=== PATIENT | female | born 1940 | race Caucasian/White ===

== ENCOUNTER 2017-10-21 06:12 | Inpatient (IN) | payer MEDICARE, OTHER ==
[2017-10-21] MEDS: morphine 2 MG INJ IV (06:58)
[2017-10-21 07:29] LABS: ADD MAN DIFF? NO
[2017-10-21 07:34] LABS: BASOPHILS % 0.3 % (0.0-2.0); EOSINOPHILS # 0.3 10^3/ul (0.0-0.5); EOSINOPHILS % 2.4 % (0.0-7.0); HEMATOCRIT 39.3 % (37.0-47.0); HEMOGLOBIN 13.3 g/dl (12.0-16.0); LYMPHOCYTES # 1.3 10^3/ul (0.8-2.9); LYMPHOCYTES % 11.6 % (15.0-51.0); MEAN CORPUSCULAR HEMOGLOBIN 27.9 pg (29.0-33.0); MEAN CORPUSCULAR HGB CONC 33.8 g/dl (32.0-37.0); MEAN CORPUSCULAR VOLUME 82.4 fl (82.0-101.0); MEAN PLATELET VOLUME 8.6 fl (7.4-10.4); MONOCYTE # 0.6 10^3/ul (0.3-0.9); MONOCYTES % 5.4 % (0.0-11.0); NEUTROPHIL # 9.2 10^3/ul (1.6-7.5); PLATELET COUNT 175 10^3/UL (140-415); RED BLOOD COUNT 4.77 10^6/ul (4.20-5.40); RED CELL DISTRIBUTION WIDTH 14.4 % (11.5-14.5)
[2017-10-21 07:34] LABS: WHITE BLOOD COUNT 11.5 10^3/ul (4.8-10.8)
[2017-10-21 07:51] LABS: ANION GAP 16 (8-16); BLOOD UREA NITROGEN 31 mg/dl (7-20); CALCIUM 9.8 mg/dl (8.4-10.2); CARBON DIOXIDE 27 mmol/L (21-31); CHLORIDE 103 mmol/L (97-110); CREATININE 0.86 mg/dl (0.44-1.00); GLUCOSE 114 mg/dl (70-220); POTASSIUM 4.1 mmol/L (3.5-5.1); SODIUM 142 mmol/L (135-144)
[2017-10-21 07:52] LABS: INR 1.02; PROTIME 13.5 Sec (11.9-14.9); PT RATIO 1.1
[2017-10-21 07:53] LABS: PARTIAL THROMBOPLASTIN TIME 40.4 Sec (25.0-35.0)
[2017-10-21] MEDS: LORAZEPAM 2 MG INJ IM (08:46)
[2017-10-21] MEDS ORDERED: LORAZEPAM 0.5 MG TAB PO (13:00)
[2017-10-21] MEDS: CALCIUM CARBONATE 1.25 GM TAB PO (21:17)
[2017-10-21] MEDS: METOPROLOL 25 MG TAB PO (21:18)
[2017-10-21] MEDS: DOCUSATE SODIUM 100 MG CAP PO (21:18)
[2017-10-21] MEDS: GEMFIBROZIL 600 MG TAB PO (21:26)
[2017-10-21] MEDS: SOD CHLORIDE 0.9% 1,000 ML IV (22:39)
[2017-10-22] MEDS: ASPIRIN 81 MG TAB PO (09:35)
[2017-10-22] MEDS: GEMFIBROZIL 600 MG TAB PO ×2 (09:35→21:02)
[2017-10-22] MEDS: CALCIUM CARBONATE 1.25 GM TAB PO ×2 (09:35→21:02)
[2017-10-22] MEDS: METOPROLOL 25 MG TAB PO ×2 (09:36→21:03)
[2017-10-22] MEDS: SOD CHLORIDE 0.9% 1,000 ML IV (15:53)
[2017-10-22] MEDS: HYDROCODONE/APAP (5/325) TAB PO (16:23)
[2017-10-22] MEDS: LORAZEPAM 2 MG INJ IV (18:13)
[2017-10-22] MEDS: DOCUSATE SODIUM 100 MG CAP PO (21:02)
[2017-10-23] MEDS: SOD CHLORIDE 0.9% 1,000 ML IV ×4 (02:30→19:10)
[2017-10-23] MEDS: HYDROCODONE/APAP (5/325) TAB PO (04:58)
[2017-10-23] MEDS: CALCIUM CARBONATE 1.25 GM TAB PO ×2 (09:29→21:39)
[2017-10-23] MEDS: ASPIRIN 81 MG TAB PO (09:30)
[2017-10-23] MEDS: GEMFIBROZIL 600 MG TAB PO ×2 (09:30→21:39)
[2017-10-23] MEDS: METOPROLOL 25 MG TAB PO ×2 (09:30→21:39)
[2017-10-23 09:37] LABS: ADD UMIC YES; UR ASCORBIC ACID NEGATIVE (NEGATIVE); UR BACTERIA MANY /HPF (NONE SEEN); UR BILIRUBIN (Dip) NEGATIVE (NEGATIVE); UR BLOOD (Dip) 2+ mg/dL (NEGATIVE); UR CLARITY CLOUDY (CLEAR); UR COLOR YELLOW (YELLOW); UR GLUCOSE (Dip) NEGATIVE (NEGATIVE); UR KETONES (Dip) NEGATIVE (NEGATIVE); UR LEUKOCYTE ESTERASE (Dip) 3+ Leu/ul (NEGATIVE); UR MUCUS MODERATE /HPF (NONE SEEN); UR NITRITE (Dip) NEGATIVE (NEGATIVE); UR NONSQUAMOUS EPITHELIAL CELL 1 /HPF (NONE SEEN); UR RBC 59 /HPF (0-5); UR SPECIFIC GRAVITY (Dip) 1.016 (1.003-1.030); UR SQUAMOUS EPITHELIAL CELL FEW /HPF (FEW); UR TOTAL PROTEIN (Dip) 1+ mg/dl (NEGATIVE); UR UROBILINOGEN (Dip) NEGATIVE (NEGATIVE); UR WBC > 182 /HPF (0-5)
[2017-10-23] MEDS: DOCUSATE SODIUM 100 MG CAP PO (21:39)
[2017-10-24] MEDS: SOD CHLORIDE 0.9% 1,000 ML IV ×4 (05:40→19:20)
[2017-10-24] MEDS: GEMFIBROZIL 600 MG TAB PO ×2 (08:43→20:47)
[2017-10-24] MEDS: METOPROLOL 25 MG TAB PO ×2 (08:43→20:47)
[2017-10-24] MEDS: CALCIUM CARBONATE 1.25 GM TAB PO ×2 (08:44→20:48)
[2017-10-24] MEDS: ASPIRIN 81 MG TAB PO (08:44)
[2017-10-24] MEDS: CEFTRIAXONE 1 GM/50 ML (PMX) 50 ML IVPB (15:21)
[2017-10-24] MEDS: DOCUSATE SODIUM 100 MG CAP PO (20:45)
[2017-10-24] MEDS: ACETAMINOPHEN 325 MG TAB PO (20:51)
[2017-10-25 05:07] LABS: ADD MAN DIFF? NO
[2017-10-25 05:13] LABS: BASOPHILS % 0.3 % (0.0-2.0); EOSINOPHILS # 0.2 10^3/ul (0.0-0.5); EOSINOPHILS % 1.8 % (0.0-7.0); HEMATOCRIT 29.6 % (37.0-47.0); HEMOGLOBIN 9.6 g/dl (12.0-16.0); LYMPHOCYTES # 1.2 10^3/ul (0.8-2.9); LYMPHOCYTES % 10.7 % (15.0-51.0); MEAN CORPUSCULAR HEMOGLOBIN 27.4 pg (29.0-33.0); MEAN CORPUSCULAR HGB CONC 32.4 g/dl (32.0-37.0); MEAN CORPUSCULAR VOLUME 84.6 fl (82.0-101.0); MEAN PLATELET VOLUME 9.2 fl (7.4-10.4); MONOCYTES % 8.5 % (0.0-11.0); NEUTROPHIL # 8.8 10^3/ul (1.6-7.5); NEUTROPHILS % 78.3 % (39.0-77.0); PLATELET COUNT 146 10^3/UL (140-415); RED CELL DISTRIBUTION WIDTH 14.4 % (11.5-14.5)
[2017-10-25 05:13] LABS: WHITE BLOOD COUNT 11.3 10^3/ul (4.8-10.8)
[2017-10-25 05:32] LABS: ANION GAP 11 (8-16); BLOOD UREA NITROGEN 14 mg/dl (7-20); CALCIUM 8.6 mg/dl (8.4-10.2); CARBON DIOXIDE 24 mmol/L (21-31); CHLORIDE 110 mmol/L (97-110); GLUCOSE 113 mg/dl (70-220); POTASSIUM 3.6 mmol/L (3.5-5.1); SODIUM 141 mmol/L (135-144)
[2017-10-25] MEDS: SOD CHLORIDE 0.9% 1,000 ML IV ×2 (07:41→19:00)
[2017-10-25] MEDS: METOPROLOL 25 MG TAB PO ×2 (09:00→21:00)
[2017-10-25] MEDS: GEMFIBROZIL 600 MG TAB PO ×2 (09:00→21:00)
[2017-10-25] MEDS: CALCIUM CARBONATE 1.25 GM TAB PO ×2 (09:00→21:00)
[2017-10-25] MEDS: ASPIRIN 81 MG TAB PO (09:00)
[2017-10-25] MEDS: CEFTRIAXONE 1 GM/50 ML (PMX) 50 ML IVPB (15:21)
[2017-10-25] MEDS: ACETAMINOPHEN 325 MG TAB PO (20:25)
[2017-10-25] MEDS: DOCUSATE SODIUM 100 MG CAP PO (21:00)
[2017-10-25] MEDS: ACETAMINOPHEN 1000MG/100ML IV 100 ML IVPB (21:30)
[2017-10-26 05:13] LABS: ADD MAN DIFF? NO
[2017-10-26 05:17] LABS: WHITE BLOOD COUNT 10.5 10^3/ul (4.8-10.8)
[2017-10-26 05:17] LABS: BASOPHILS % 0.3 % (0.0-2.0); EOSINOPHILS # 0.3 10^3/ul (0.0-0.5); HEMATOCRIT 29.8 % (37.0-47.0); HEMOGLOBIN 10.1 g/dl (12.0-16.0); LYMPHOCYTES # 1.2 10^3/ul (0.8-2.9); LYMPHOCYTES % 11.1 % (15.0-51.0); MEAN CORPUSCULAR HEMOGLOBIN 28.1 pg (29.0-33.0); MEAN CORPUSCULAR HGB CONC 33.9 g/dl (32.0-37.0); MEAN PLATELET VOLUME 8.8 fl (7.4-10.4); MONOCYTES % 9.2 % (0.0-11.0); PLATELET COUNT 176 10^3/UL (140-415); RED BLOOD COUNT 3.59 10^6/ul (4.20-5.40); RED CELL DISTRIBUTION WIDTH 13.9 % (11.5-14.5)
[2017-10-26 05:37] LABS: ANION GAP 15 (8-16); BLOOD UREA NITROGEN 13 mg/dl (7-20); CALCIUM 8.8 mg/dl (8.4-10.2); CARBON DIOXIDE 21 mmol/L (21-31); CHLORIDE 109 mmol/L (97-110); CREATININE 0.71 mg/dl (0.44-1.00); GLUCOSE 90 mg/dl (70-220); POTASSIUM 3.6 mmol/L (3.5-5.1); SODIUM 141 mmol/L (135-144)
[2017-10-26] MEDS: SOD CHLORIDE 0.9% 1,000 ML IV ×2 (05:58→15:05)
[2017-10-26] MEDS: CALCIUM CARBONATE 1.25 GM TAB PO ×2 (08:30→22:39)
[2017-10-26] MEDS: GEMFIBROZIL 600 MG TAB PO ×2 (08:30→22:39)
[2017-10-26] MEDS: ASPIRIN 81 MG TAB PO (08:31)
[2017-10-26] MEDS: METOPROLOL 25 MG TAB PO ×2 (08:31→22:40)
[2017-10-26] MEDS: CEFTRIAXONE 1 GM/50 ML (PMX) 50 ML IVPB (15:05)
[2017-10-26] MEDS: DOCUSATE SODIUM 100 MG CAP PO (22:39)
[2017-10-27] MEDS: HYDROCODONE/APAP (5/325) TAB PO ×2 (00:11→14:03)
[2017-10-27] MEDS: SOD CHLORIDE 0.9% 1,000 ML IV ×2 (01:19→13:51)
[2017-10-27 05:35] LABS: ADD MAN DIFF? NO
[2017-10-27 05:36] LABS: BASOPHILS % 0.3 % (0.0-2.0); EOSINOPHILS # 0.4 10^3/ul (0.0-0.5); EOSINOPHILS % 3.1 % (0.0-7.0); HEMATOCRIT 31.1 % (37.0-47.0); HEMOGLOBIN 10.2 g/dl (12.0-16.0); LYMPHOCYTES # 1.8 10^3/ul (0.8-2.9); MEAN CORPUSCULAR HEMOGLOBIN 27.4 pg (29.0-33.0); MEAN CORPUSCULAR HGB CONC 32.8 g/dl (32.0-37.0); MEAN CORPUSCULAR VOLUME 83.6 fl (82.0-101.0); MEAN PLATELET VOLUME 8.8 fl (7.4-10.4); MONOCYTES % 8.1 % (0.0-11.0); NEUTROPHIL # 8.8 10^3/ul (1.6-7.5); NEUTROPHILS % 72.9 % (39.0-77.0); PLATELET COUNT 238 10^3/UL (140-415); RED BLOOD COUNT 3.72 10^6/ul (4.20-5.40); RED CELL DISTRIBUTION WIDTH 13.6 % (11.5-14.5)
[2017-10-27 05:36] LABS: WHITE BLOOD COUNT 12.1 10^3/ul (4.8-10.8)
[2017-10-27 06:08] LABS: ANION GAP 15 (8-16); BLOOD UREA NITROGEN 14 mg/dl (7-20); CALCIUM 8.8 mg/dl (8.4-10.2); CARBON DIOXIDE 22 mmol/L (21-31); CHLORIDE 109 mmol/L (97-110); CREATININE 0.68 mg/dl (0.44-1.00); GLUCOSE 113 mg/dl (70-220); POTASSIUM 4.3 mmol/L (3.5-5.1); SODIUM 142 mmol/L (135-144)
[2017-10-27] MEDS: CALCIUM CARBONATE 1.25 GM TAB PO ×2 (08:47→21:28)
[2017-10-27] MEDS: METOPROLOL 25 MG TAB PO ×2 (08:47→21:29)
[2017-10-27] MEDS: GEMFIBROZIL 600 MG TAB PO ×2 (08:47→21:28)
[2017-10-27] MEDS: ASPIRIN 81 MG TAB PO (08:47)
[2017-10-27] MEDS: CEPHALEXIN 500 MG CAP PO ×2 (14:03→21:28)
[2017-10-27] MEDS: DOCUSATE SODIUM 100 MG CAP PO (21:28)
[2017-10-28] MEDS: SOD CHLORIDE 0.9% 1,000 ML IV ×2 (00:43→10:43)
[2017-10-28 06:24] LABS: ADD MAN DIFF? NO
[2017-10-28 06:34] LABS: BASOPHILS % 0.3 % (0.0-2.0); EOSINOPHILS # 0.5 10^3/ul (0.0-0.5); EOSINOPHILS % 5.8 % (0.0-7.0); HEMOGLOBIN 10.6 g/dl (12.0-16.0); LYMPHOCYTES # 1.3 10^3/ul (0.8-2.9); MEAN CORPUSCULAR HEMOGLOBIN 27.5 pg (29.0-33.0); MEAN CORPUSCULAR HGB CONC 33.1 g/dl (32.0-37.0); MEAN CORPUSCULAR VOLUME 83.1 fl (82.0-101.0); MEAN PLATELET VOLUME 8.6 fl (7.4-10.4); MONOCYTE # 0.7 10^3/ul (0.3-0.9); NEUTROPHIL # 6.4 10^3/ul (1.6-7.5); NEUTROPHILS % 71.3 % (39.0-77.0); PLATELET COUNT 264 10^3/UL (140-415); RED BLOOD COUNT 3.85 10^6/ul (4.20-5.40); RED CELL DISTRIBUTION WIDTH 13.7 % (11.5-14.5)
[2017-10-28] MEDS: CEPHALEXIN 500 MG CAP PO (06:37)
[2017-10-28] MEDS: CALCIUM CARBONATE 1.25 GM TAB PO (12:08)
[2017-10-28] MEDS: GEMFIBROZIL 600 MG TAB PO (12:08)
[2017-10-28] MEDS: METOPROLOL 25 MG TAB PO (12:09)
[2017-10-28] MEDS: ASPIRIN 81 MG TAB PO (12:09)
== END 2017-10-28 19:19 | DRG 563 ==
LOC: MS1 10-22 03:29 → E/R 06:12 → MS1 10:46
DX: S82.251A Displaced comminuted fracture of shaft of right tibia, initial encounter for closed fracture (principal); N39.0 Urinary tract infection, site not specified; I50.30 Unspecified diastolic (congestive) heart failure; W06.XXXA Fall from bed, initial encounter; Z74.01 Bed confinement status; F03.90 Unspecified dementia, unspecified severity, without behavioral disturbance, psychotic disturbance, mood disturbance, and anxiety; F20.9 Schizophrenia, unspecified; G30.9 Alzheimer's disease, unspecified; F02.80 Dementia in other diseases classified elsewhere, unspecified severity, without behavioral disturbance, psychotic disturbance, mood disturbance, and anxiety; I11.0 Hypertensive heart disease with heart failure; S82.831A Other fracture of upper and lower end of right fibula, initial encounter for closed fracture; B96.20 Unspecified Escherichia coli [E. coli] as the cause of diseases classified elsewhere; B96.89 Other specified bacterial agents as the cause of diseases classified elsewhere
CPT/HCPCS: 36415; 72170; 72192; 73510; 73560; 73562; 73590; 73700; 80048; 81001; 85025; 85610; 85730; 87081; 87086; 96372; 96374; 99285-25